=== PATIENT | female | born 1955 | race Caucasian/White ===

== ENCOUNTER 2018-05-25 11:00 | Outpatient (CLI) | payer MEDICARE | END 2018-05-25 11:01 | disposition home or self-care (01) | LOC: BICMAMMO 11:00 | PROVIDERS: ATTEND Family Medicine | DX: Z12.31 Encounter for screening mammogram for malignant neoplasm of breast (principal); Z86.000 Personal history of in-situ neoplasm of breast | CPT/HCPCS: 77063; 77067 ==

== ENCOUNTER 2018-07-09 08:34 | Outpatient (CLI) | payer MEDICARE ==
--- NOTE | 2018-07-09 15:28 | NM ---
NUCLEAR MEDICINE Jj BRAIN SCAN: DATE: 07/09/2018. HISTORY: A 63-year-old female with G20, Parkinson's disease. TECHNIQUE: 130 mg of potassium iodine administered p.o. 1 hour prior to Ioflupane. 4.8 mCi of I-123 Ioflupane injected IV. Three hours later, SPECT images of brain obtained in axial plane. FINDINGS: There is uptake of Ioflupane in the caudate nuclei bilaterally, but no uptake in the putamina. IMPRESSION: Positive for Parkinsonism. POS: KRISTIN
== END 2018-07-09 08:35 | disposition home or self-care (01) ==
LOC: NM 08:34
PROVIDERS: ATTEND Nurse Practitioner Acute Care
DX: G20 Parkinson's disease (principal)
CPT/HCPCS: 78607; A9584

== ENCOUNTER 2019-07-12 14:44 | Outpatient (CLI) | payer MEDICARE ==
--- NOTE | 2019-07-12 15:21 | MMO ---
Bilateral MAMMO Bilat Screen [facility]. CLINICAL HISTORY: Patient is 64 years old and is seen for screening. The patient has no family history of breast cancer. 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 The patient has a history of right Stereotatic Biopsy at age 45 - malignant and right Lumpectomy in 1999 - malignant. VIEWS: The views performed were: bilateral craniocaudal with tomosynthesis and bilateral mediolateral oblique with tomosynthesis. FILMS COMPARED: The present examination has been compared to prior imaging studies performed at [facility] on 04/06/2008, 04/19/2009 and 05/25/2018, and at [facility] on 03/23/2007. This study has been interpreted with the assistance of computer-aided detection. MAMMOGRAM FINDINGS: There are scattered fibroglandular densities. Finding 1: There are stable benign appearing calcifications seen in both breasts. Finding 2: There are stable intramammary lymph nodes seen in both breasts. Finding 3: There is a stable post-surgical scar seen in the right breast. There are no suspicious masses, suspicious calcifications, or new areas of architectural distortion. IMPRESSION: THERE IS NO MAMMOGRAPHIC EVIDENCE OF MALIGNANCY. A ROUTINE FOLLOW-UP MAMMOGRAM IN 1 YEAR IS RECOMMENDED. THE RESULTS OF THIS EXAM WERE SENT TO THE PATIENT. ACR BI-RADS Category 2 - Benign finding MAMMOGRAPHY NOTE: 1. A negative mammogram report should not delay a biopsy if a dominant of clinically suspicious mass is present. 2. Approximately 10% to 15% of breast cancers are not detected by mammography. 3. Adenosis and dense breasts may obscure an underlying neoplasm. Reported by: LYNNE HANLEY MD Electonically Signed: [id number]
== END 2019-07-12 14:45 | disposition home or self-care (01) ==
LOC: BICMAMMO 14:44
PROVIDERS: ATTEND Family Medicine
DX: Z12.31 Encounter for screening mammogram for malignant neoplasm of breast (principal); Z85.3 Personal history of malignant neoplasm of breast; Z91.89 Other specified personal risk factors, not elsewhere classified
CPT/HCPCS: 77063; 77067

== ENCOUNTER 2021-10-21 13:42 | Outpatient (CLI) | payer MEDICARE, OTHER ==
[2021-10-21 23:56] LABS: SARS-CoV-2 PCR by NAA Not Detected (NotDetected)
== END 2021-10-21 13:43 | disposition home or self-care (01) ==
LOC: LABBT 13:42
PROVIDERS: ATTEND Family Medicine
DX: Z20.822 Contact with and (suspected) exposure to COVID-19 (principal)
CPT/HCPCS: U0003; U0005

== ENCOUNTER 2021-10-23 08:57 | Outpatient (CLI) | payer MEDICARE, OTHER | END 2021-10-23 08:58 | disposition home or self-care (01) | LOC: RAD 08:57 | PROVIDERS: ATTEND Physician Assistant | DX: R13.10 Dysphagia, unspecified (principal); G20 Parkinson's disease | CPT/HCPCS: 74230 ==

== ENCOUNTER 2022-03-06 11:47 | Outpatient (CLI) | payer MEDICARE, OTHER ==
[2022-03-06 13:35] LABS: Hemoglobin 11.1 g/dL (12.0-15.5)
[2022-03-06 13:56] LABS: Anion Gap 14 mmol/L (10-20); BUN (Urea Nitrogen) 17 mg/dL (9.8-20.1); Calc. Creatinine Clearance 0 mL/min (70-130); Calcium 9.3 mg/dL (7.8-10.44); Carbon Dioxide 25 mmol/L (23-31); Chloride 101 mmol/L (98-107); Estimated GFR 61; Glucose 83 mg/dL (80-115); Potassium 4.8 mmol/L (3.5-5.1); Sodium 135 mmol/L (136-145)
== END 2022-03-06 11:48 | disposition home or self-care (01) ==
LOC: LABBT 11:47
PROVIDERS: ATTEND Student in an Organized Health Care Education/Training Program
DX: Z01.818 Encounter for other preprocedural examination (principal); R49.0 Dysphonia; J38.7 Other diseases of larynx; J38.00 Paralysis of vocal cords and larynx, unspecified; Z20.822 Contact with and (suspected) exposure to COVID-19
CPT/HCPCS: 80048; 85014; 85018; 87811; 93005; 93010

== ENCOUNTER 2022-03-11 10:56 | Day surgery (SDC) | payer MEDICARE, OTHER ==
[2022-03-07 11:31] VITALS: BMI 31.4
[2022-03-11] MEDS ORDERED: EPINEPHrine 1 MG/ML AMP ONE (13:01)
[2022-03-11] MEDS ORDERED: Lidocaine 1% (PF) 30 ML VIAL ONE (13:01)
[2022-03-11] MEDS ORDERED: fentaNYL Citrate/PF 100 MCG/2 ML SYRINGE ONE (13:05)
[2022-03-11] MEDS ORDERED: SUGAMMADEX SODIUM 200 MG/2 ML VIAL ONE (13:09)
[2022-03-11] MEDS ORDERED: Dexamethasone 20 MG/5 ML VIAL ONE (13:13)
[2022-03-11] MEDS ORDERED: Esmolol 100 MG/10 ML VIAL ONE (13:13)
[2022-03-11] MEDS ORDERED: PROPOFOL 200 MG/20 ML VIAL ONE (13:13)
[2022-03-11] MEDS ORDERED: Ondansetron PF 4 MG/2 ML Vial ONE (13:13)
[2022-03-11] MEDS ORDERED: Rocuronium Bromide 10 MG/ML (10ML VIAL) ONE (13:13)
[2022-03-11] MEDS ORDERED: Fentanyl 100 MCG/2 ML VIAL ONE (14:28)
[2022-03-11] MEDS ORDERED: Labetalol HCl 100 MG/20 ML VIAL ONE (14:47)
== END 2022-03-11 15:56 | disposition home or self-care (01) ==
LOC: SDC 10:56
PROVIDERS: ATTEND Student in an Organized Health Care Education/Training Program
PROC: 3E0F8GC Introduction of Other Therapeutic Substance into Respiratory Tract, Via Natural or Artificial Opening Endoscopic (ICD-10-PCS; principal; 2022-03-11)
DX: J38.7 Other diseases of larynx (principal); J38.02 Paralysis of vocal cords and larynx, bilateral; G20 Parkinson's disease; E78.5 Hyperlipidemia, unspecified; I10 Essential (primary) hypertension; M19.90 Unspecified osteoarthritis, unspecified site; Z85.3 Personal history of malignant neoplasm of breast; Z79.82 Long term (current) use of aspirin; Z79.890 Hormone replacement therapy; Z79.899 Other long term (current) drug therapy; Z88.2 Allergy status to sulfonamides
CPT/HCPCS: 31570; C1776; J0171; J1100; J2001; J2405; J2704; J3010